=== PATIENT | male | born 1995 | race Caucasian/White ===

== ENCOUNTER 2021-05-16 09:23 | Emergency (ER) | payer BC ==
--- NOTE | 2021-05-16 09:42 | NUR ---
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
--- NOTE | 2021-05-16 09:55 | NUR ---
PT. IS A & O X 4 WITH A GCS OF 16 WITH C/O EPIGASTRIC ABD. PAIN X 3 DAYS WITH ASSOCIATED DIARRHEA. PT. IS PINK, WARM AND DRY. LUNGS ARE CTA THROUGHOUT. S1 S2 NOTED WITHOUT MURMURS, RUBS OR GALLOPS. PT.'S ABD. IS SOFT AND FLAT WITH BS + X 4 QUADS. PT. REPORTS SOME BURNING WITH URINATION. NO UA SAMPLE AT THIS TIME. VSS. PT. VALDEZ WNL. PULSES ARE +2 THROUGHOUT. PT. IS RESTING WITH THE CALL LIGHT IN PLACE.
--- NOTE | 2021-05-16 11:00 | NUR ---
PT. WAS TAKEN TO CT SCAN. LABS DRAWN.
[2021-05-16] MEDS ORDERED: ONDANSETRON 2MG/ML, 2ML IVPush ONE (11:30)
[2021-05-16] MEDS ORDERED: SODIUM CHLORIDE FLUSH 10ML SYR IVF ONE (11:30)
[2021-05-16] MEDS ORDERED: MORPHINE SULFATE 4 MG/ML, 1ML IVPush PRN (11:30)
[2021-05-16] MEDS ORDERED: SODIUM CHLORIDE 0.9% 1,000ML IVBOLUS ONE (11:30)
[2021-05-16 11:44] LABS: BASOPHILS % (AUTO) 1 % (0-1); EOSINOPHILS % (AUTO) 1 % (1-7); LYMPHOCYTES % (AUTO) 38 % (22-44); MEAN CORPUSCULAR HEMOGLOBIN 31.6 pg (27.5-34.5); MEAN CORPUSCULAR HGB CONC 33.9 g/dL (33.2-36.2); MEAN PLATELET VOLUME 6.7 fL (7.4-10.4); MONOCYTES % (AUTO) 12 % (2-9); NEUTROPHILS % (AUTO) 49 % (42-75); PLATELET COUNT 342 x10^3/uL (130-400); RED BLOOD COUNT 4.77 x10^6/uL (4.38-5.82); RED CELL DISTRIBUTION WIDTH 13.5 % (9.4-14.8)
[2021-05-16 11:54] LABS: ALANINE AMINOTRANSFERASE 53 U/L (12-78); ALBUMIN 4.1 g/dL (3.4-5.0); ANION GAP 6 mmol/L (5-15); CALCIUM 9.1 mg/dL (8.5-10.1); CHLORIDE 106 mmol/L (98-107); CREATININE 0.64 mg/dL (0.7-1.3)
[2021-05-16 11:56] LABS: ALKALINE PHOSPHATASE 85 U/L (45-117); BILIRUBIN,TOTAL 0.8 mg/dL (0.2-1.0); TOTAL PROTEIN 7.4 g/dL (6.4-8.2)
--- NOTE | 2021-05-16 12:06 | NUR ---
PT. IS RESTING WITHOUT CONCERNS. PT. DECLINED PAIN MEDS AND IV FLUIDS. VSS.
[2021-05-16 12:34] VITALS: BP 105/60
--- NOTE | 2021-05-16 12:34 | NUR ---
Patient/Caregiver given discharge instructions and they have confirmed that they understand the instructions. Patient ambulatory with steady gait. NAD, all questions answered appropriately, denies additional needs at this time. No personal belongings left in room after discharge.
[2021-05-16 12:39] LABS: MICROSCOPIC INDICATED
== END 2021-05-16 12:36 | disposition home or self-care (01) ==
LOC: EDBD 09:23 → ED 12:30
DX: A08.4 Viral intestinal infection, unspecified (principal); R11.2 Nausea with vomiting, unspecified
CPT/HCPCS: 36415; 74021; 80053; 81001; 83605; 83690; 85025; 99284